=== PATIENT | female | born 1965 | race Two or more races ===

== ENCOUNTER 2019-04-07 11:15 | Emergency (ER) | payer BC, OTHER ==
[~2019-04-07] VITALS: Ht 165.1 cm; Wt 106.1 kg
[2019-04-07] MEDS ORDERED: LIDOCAINE VISCOUS 2% 15ML UD PO ONE (14:45)
[2019-04-07] MEDS ORDERED: ALBUTEROL SULF 2.5 MG/0.5ML(0.5%) NEB SOLN NEB ONE (14:45)
[2019-04-07] MEDS ORDERED: IPRATROPIUM BROM 0.5 MG/2.5ML INH SOL NEB ONE (14:45)
[2019-04-07] MEDS ORDERED: methylPREDNISolone SOD SUCC 125 MG/2 ML VL IV ONE (15:15)
[2019-04-07 16:41] VITALS: BP 132/75
[2019-04-08] MEDS ORDERED: LISI10TA6 PO (18:13)
[2019-04-08] MEDS ORDERED: EZET10TA38 PO (18:13)
[2019-04-08] MEDS ORDERED: LEVO125T7 PO (18:13)
== END 2019-04-07 19:09 | disposition home or self-care (01) ==
LOC: ER 11:15
DX: R06.02 Shortness of breath (principal); J02.9 Acute pharyngitis, unspecified; H60.93 Unspecified otitis externa, bilateral; R91.8 Other nonspecific abnormal finding of lung field; E78.5 Hyperlipidemia, unspecified; I10 Essential (primary) hypertension; E07.9 Disorder of thyroid, unspecified
CPT/HCPCS: 71046; 71250; 94640; 96374; 99284; J2930; J7611; J7644

== ENCOUNTER 2019-04-08 09:49 | Inpatient (IN) | payer BC ==
[~2019-04-08] VITALS: Ht 167.6 cm; Wt 110.1 kg
[2019-04-08] MEDS ORDERED: SODIUM CHLORIDE 0.9% 2,000 ML IV ONE (10:29)
[2019-04-08 11:00] LABS: Basophils # (auto) 0 uL; Basophils % (auto) 0.3 % (0.0-2.0); Eosinophils # (auto) 0 uL; Eosinophils % (auto) 0.1 % (0.0-7.0); Hematocrit 48.9 % (36.0-46.0); Hemoglobin 16.6 g/dL (12.2-16.2); Lymphocytes # (auto) 1.2 uL; Lymphocytes % (auto) 10.1 % (10.0-50.0); Mean Corpuscular Hemoglobin 31.2 pg (28.0-32.0); Mean Corpuscular Hgb Conc. 33.9 g/dL (32.0-36.0); Monocytes # (auto) 0.6 uL; Monocytes % (auto) 5.2 % (0.0-12.0); Neutrophils % (auto) 84.3 % (37.0-80.0); Nucleated Red Blood Cells % 0.1 %; Platelet Count (auto) 274 10^3/uL (140-450); Red Blood Cells 5.31 10^6/uL (4.0-5.20); White Blood Cell 11.8 10^3/uL (4.4-10.8)
[2019-04-08] MEDS ORDERED: IODIXANOL 320MG/ML 100ML BTL IV ONE (11:03)
[2019-04-08 11:18] LABS: INR 1.04 (0.9-1.15); Partial Thromboplastin Time 26.5 sec (23.64-32.05)
[2019-04-08 11:20] LABS: Albumin 3.9 g/dL (3.4-5.0); Calcium 9.5 mg/dL (8.5-10.1); Potassium 4.1 mmol/L (3.5-5.1)
[2019-04-08 11:23] LABS: BUN/Creatinine Ratio 14.3; Bilirubin, Total 0.7 mg/dL (0.2-1.0); Total Protein 8.2 g/dL (6.4-8.2)
[2019-04-08] MEDS ORDERED: SODIUM CHLORIDE 0.9% 1,000 ML IV ONE (13:15)
[2019-04-08] MEDS ORDERED: cefTRIAXone 1GM/50ML D5W 50 ML IV ONE ×2 (13:15→13:19)
[2019-04-08] MEDS ORDERED: HYDROcodone-ACET 5/325MG TAB PO PRN (14:30)
[2019-04-08] MEDS ORDERED: MORPHINE SULF INJ 2 MG/ML SYRINGE 1ML IV PRN ×2 (14:30)
[2019-04-08] MEDS ORDERED: NITROGLYCERIN 0.4 MG SL TAB SL PRN (14:30)
[2019-04-08] MEDS ORDERED: ONDANSETRON HCL 4 MG/2 ML VIAL IV PRN (14:30)
[2019-04-08] MEDS: AZITHROMYCIN 500MG/ 250ML 250 ML IV SCH (16:22)
--- NOTE | 2019-04-08 16:38 | NUR ---
Telemetry admit from ER ZORANEDELMIRA admitted to Telemetry unit after SBAR received from GYMNASTIC COACH Kourtney. Patient oriented to Amanda Salcedo RN primary RN, unit, room, bed, and unit policies regarding patient care and visiting hours. Patient now on continuous telemetry monitoring, tele box #[id number] and telemetry reading on arrival to unit is Sinus Rhythm 74 bpm. Patient placed on bedside oxygen, weighed by bedscale and encouraged to call if they need something. All questions and concerns addressed, patient verbalized understanding.
[2019-04-08 17:00] VITALS: BP 111/48
--- NOTE | 2019-04-08 17:22 | NUR ---
SPOKE WITH ROSANNE STEINBERG AND INFORMED HIM OF PATIENT'S VTE SCORE OF 2. STRAW HAT PRESSER IS AWARE AND ORDERED SCDS.
[2019-04-08] MEDS ORDERED: EZET10TA38 PO (18:13)
[2019-04-08] MEDS ORDERED: LEVO125T7 PO (18:13)
[2019-04-08] MEDS ORDERED: LISI10TA6 PO (18:13)
[2019-04-08] MEDS ORDERED: LABETALOL HCL 5 MG/ML ML 20ML VIAL IV PRN (18:15)
--- NOTE | 2019-04-08 18:15 | NUR ---
INFORMED INFORMATION AND DATA ARCHITECT ANALYST IDRIS OF PATIENT'S BLOOD PRESSURE OF 158/92 AND HR OF 76. INFORMATION AND DATA ARCHITECT ANALYST IS AWARE AND WANTS HOME BLOOD PRESSURE MEDICATIONS TO BE CONTINUED AND LABETALOL TO BE ORDERED PRN. WILL FOLLOW THROUGH WITH ORDERS
--- NOTE | 2019-04-08 18:25 | NUR ---
REASSESSED PATIENT'S BLOOD PRESSURE. BP IS 117/76 mmHg AND HR IS 76. WILL HOLD LABETALOL
--- NOTE | 2019-04-08 19:21 | NUR ---
CLOSING SHIFT NOTE ENDORSED CARE TO PLANISHING PRESS OPERATOR LAURA GENAO. PATIENT HAS NO S/S OF DISTRESS/SOB OR PAIN AT THIS TIME.
--- NOTE | 2019-04-08 19:30 | NUR ---
Opening Shift Note Assumed care of patient, awake and alert, ambulatory. No S/S of distress/SOB. On O2 at 2 Lpm/NC. Updated on POC and to call for assist PRN, patient verbalized understanding, call light within reach, will continue to monitor for changes Q1hr and PRN.
[2019-04-08 20:00] VITALS: BP 115/75
[2019-04-08] MEDS: ALBUTEROL SULF 2.5 MG/0.5ML(0.5%) NEB SOLN NEB SCH (20:49)
[2019-04-08] MEDS: IPRATROPIUM BROM 0.5 MG/2.5ML INH SOL NEB SCH (20:49)
[2019-04-08] MEDS: BUDESONIDE (INHALATION) 0.5 MG/2 ML NEB NEB SCH (20:50)
[2019-04-08 23:37] VITALS: BP 115/75
[2019-04-09] VITALS (7 sets, daily range): BP systolic 101–131; BP diastolic 52–78
[2019-04-09] MEDS: LEVOTHYROXINE SODIUM 50 MCG TAB PO SCH (06:03)
[2019-04-09] MEDS: BUDESONIDE (INHALATION) 0.5 MG/2 ML NEB NEB SCH ×2 (06:43→18:09)
[2019-04-09] MEDS: IPRATROPIUM BROM 0.5 MG/2.5ML INH SOL NEB SCH ×3 (06:49→18:09)
[2019-04-09] MEDS: ALBUTEROL SULF 2.5 MG/0.5ML(0.5%) NEB SOLN NEB SCH ×3 (06:49→18:09)
[2019-04-09 06:50] LABS: Basophils # (auto) 0 uL; Basophils % (auto) 0.2 % (0.0-2.0); Eosinophils # (auto) 0.1 uL; Eosinophils % (auto) 0.6 % (0.0-7.0); Hematocrit 42.6 % (36.0-46.0); Hemoglobin 14.4 g/dL (12.2-16.2); Lymphocytes # (auto) 2.9 uL; Lymphocytes % (auto) 29.9 % (10.0-50.0); Mean Corpuscular Hemoglobin 31.4 pg (28.0-32.0); Mean Corpuscular Hgb Conc. 33.9 g/dL (32.0-36.0); Mean Corpuscular Volume 92.7 fL (80.0-100.0); Monocytes # (auto) 0.6 uL; Monocytes % (auto) 6.3 % (0.0-12.0); Neutrophils # (auto) 6.1 uL; Nucleated Red Blood Cells % 0.1 %; Platelet Count (auto) 222 10^3/uL (140-450); Potassium 4.2 mmol/L (3.5-5.1); Red Cell Distribution Width 13.9 % (11.8-14.3); White Blood Cell 9.6 10^3/uL (4.4-10.8)
[2019-04-09 06:58] LABS: BUN/Creatinine Ratio 20.3; Calcium 8.1 mg/dL (8.5-10.1)
[2019-04-09 06:59] LABS: Cholesterol 126 mg/dL (< 200); HDL Cholesterol 45 mg/dL (40-59); LDL Cholesterol 72 mg/dL (< 100); Triglycerides 125 mg/dL (< 150)
--- NOTE | 2019-04-09 07:15 | NUR ---
OPENING SHIFT NOTE ASSUMED CARE OF PATIENT FROM INSURANCE SPECIALIST RN AGATA. PATIENT IS AWAKE AND ALERT X4. PATIENT HAS NO S/S OF DISTRESS/SOB OR PAIN. INSTRUCTED PATIENT ON POC, PATIENT VERBALIZED UNDERSTANDING. BED IS IN LOWEST POSITION WITH SIDE RAILS RAISED X2, BED WHEELS LOCKED, AND CALL LIGHT IS WITHIN REACH. WILL CONTINUE TO MONITOR.
[2019-04-09] MEDS: cefTRIAXone 1GM/50ML D5W 50 ML IV SCH (09:14)
[2019-04-09] MEDS: AZITHROMYCIN 500MG/ 250ML 250 ML IV SCH (10:10)
[2019-04-09] MEDS: LISINOPRIL 10 MG TAB PO SCH (10:10)
--- NOTE | 2019-04-09 11:06 | NUR ---
SPOKE WITH MD CARDOSO TO CONTINUE POM VYTORIN. ORDERED FOR MEDICATION TO BE CONTINUED. WILL TAKE MEDICATION TO PHARMACY
--- NOTE | 2019-04-09 18:05 | NUR ---
MD REYNOSO AT BEDSIDE. UPDATED MD ON PATIENT'S STATUS. PER MD HE WANTS DR. WALLACE INFORMED PATIENT IS HERE. MD WALLACE IS HER PCP. LEFT MESSAGE WITH DR. WALLACE TRANSFER SERVICES. AWAITING CALL BACK. INFORMED MD REYNOSO THAT HE IS STILL CONSULTED FOR PULMONARY FOR THE PATIENT.
--- NOTE | 2019-04-09 19:22 | NUR ---
CLOSING SHIFT NOTE ENDORSED CARE TO CHECKER AND PACKER RN CHRISSY. INFORMED RN OF MEDICAL RECORD REQUEST FROM [facility], ENDORSED FAX SHEETS TO CHECKER AND PACKER RN. PATIENT HAS NO S/S OF DISTRESS/SOB OR PAIN AT THIS TIME.
--- NOTE | 2019-04-09 19:30 | NUR ---
Opening Shift Note Assumed care of patient, awake and alert X4. No S/S of distress or pain. Complains of SOB on exertion or after ambulating to the bathroom. IV patent and saline locked. UA has not been collected. Instructed patient on obtaining a clean catch sample and specimen cup given. Ambulates to bathroom on own. Observed steady gait. Instructed on POC and to call for assist PRN, will continue to monitor for changes Q1hr and PRN.
--- NOTE | 2019-04-09 22:30 | NUR ---
Complaining of headache 06/07. [place] given. Offered ice pack or cold washcloth as well. Will follow up. Bed low and call light within reach
[2019-04-09 22:42] LABS: Urine Bacteria NONE SEEN /hpf (None Seen); Urine Blood Negative /uL (Negative); Urine Specific Gravity 1.008 (1.001-1.035); Urine WBC 1 /hpf (0 - 5)
--- NOTE | 2019-04-09 23:00 | NUR ---
Patient signed authorization for medical records from [place] per MD request. Papers given to [place]. [place] to [place] and placed in chart
--- NOTE | 2019-04-10 00:56 | NUR ---
Opening Note Assumed pt care from Kourtney BRITO RN. Pt is laying quietly in bed with no s/s of distress or SOB. A/Ox4. Safety measures maintained with side rails up, bed in lowest position and call light within reach. Will continue to monitor for changes q1hr and prn.
[2019-04-10 05:26] VITALS: BP 128/81
[2019-04-10] MEDS: IPRATROPIUM BROM 0.5 MG/2.5ML INH SOL NEB SCH ×3 (06:05→18:30)
[2019-04-10] MEDS: ALBUTEROL SULF 2.5 MG/0.5ML(0.5%) NEB SOLN NEB SCH ×3 (06:05→18:30)
[2019-04-10] MEDS: LEVOTHYROXINE SODIUM 50 MCG TAB PO SCH (06:22)
--- NOTE | 2019-04-10 07:04 | NUR ---
Closing Note Care endorsed to day shift nurse Ann SANCHEZ.
[2019-04-10 08:00] VITALS: BP 110/72
[2019-04-10] MEDS: cefTRIAXone 1GM/50ML D5W 50 ML IV SCH (09:55)
[2019-04-10] MEDS: EZETIMIBE SIMVASTATIN PO SCH (09:55)
[2019-04-10] MEDS: AZITHROMYCIN 500MG/ 250ML 250 ML IV SCH (09:55)
[2019-04-10] MEDS: LISINOPRIL 10 MG TAB PO SCH (09:57)
[2019-04-10] MEDS: BUDESONIDE (INHALATION) 0.5 MG/2 ML NEB NEB SCH ×2 (11:32→18:30)
[2019-04-10 12:00] VITALS: BP 123/76
[2019-04-10 17:00] VITALS: BP 146/80
--- NOTE | 2019-04-10 18:40 | NUR ---
Respiratory note: SCHEDULED MED NEB TX GIVEN VIA MASK, PT TOLERATED WELL. NO ADVERSE REACTIONS NOTED. WILL CONTINUE TO MONITOR.
--- NOTE | 2019-04-10 19:30 | NUR ---
Opening Shift Note Received report from Ann SANCHEZ. Assumed care of patient, awake and alert. No S/S of distress/SOB. Complains of headache at 8/10, will give medication. Instructed on POC and to call for assist PRN, will continue to monitor for changes Q1hr and PRN.
[2019-04-10] MEDS: ACETAMINOPHEN 500 MG TAB PO PRN (20:24)
[2019-04-10 22:00] VITALS: BP 121/73
[2019-04-11 05:37] VITALS: BP 126/73
[2019-04-11] MEDS: ALBUTEROL SULF 2.5 MG/0.5ML(0.5%) NEB SOLN NEB SCH ×4 (06:21→22:19)
[2019-04-11] MEDS: IPRATROPIUM BROM 0.5 MG/2.5ML INH SOL NEB SCH ×4 (06:21→22:19)
[2019-04-11] MEDS: BUDESONIDE (INHALATION) 0.5 MG/2 ML NEB NEB SCH ×2 (06:21→18:21)
[2019-04-11] MEDS: LEVOTHYROXINE SODIUM 50 MCG TAB PO SCH (06:43)
--- NOTE | 2019-04-11 06:44 | NUR ---
Patient awake, states slept well, headache resolved but still complaining about her coughing. Otherwise, patient is stable, will continue carre.
--- NOTE | 2019-04-11 07:04 | NUR ---
Care endorsed to Ann SANCHEZ.
[2019-04-11 08:31] VITALS: BP 127/81
[2019-04-11] MEDS: cefTRIAXone 1GM/50ML D5W 50 ML IV SCH (09:56)
[2019-04-11] MEDS: AZITHROMYCIN 500MG/ 250ML 250 ML IV SCH (09:57)
[2019-04-11] MEDS: EZETIMIBE SIMVASTATIN PO SCH (09:57)
[2019-04-11] MEDS: LISINOPRIL 10 MG TAB PO SCH (09:58)
[2019-04-11 17:14] VITALS: BP 100/82
[2019-04-11] MEDS: methylPREDNISolone SOD SUCC 125 MG/2 ML VL IV SCH (18:05)
--- NOTE | 2019-04-11 19:05 | NUR ---
Opening Shift Note Received report from Ann SANCHEZ. Assumed care of patient, awake and alert. No S/S of distress/SOB or pain. Instructed on POC and to call for assist PRN, will continue to monitor for changes Q1hr and PRN.
[2019-04-11 19:19] VITALS: BP 100/82
[2019-04-11 21:30] VITALS: BP 137/84
[2019-04-12] MEDS: methylPREDNISolone SOD SUCC 125 MG/2 ML VL IV SCH ×4 (00:08→21:52)
[2019-04-12 04:30] VITALS: BP 121/70
[2019-04-12] MEDS: LEVOTHYROXINE SODIUM 50 MCG TAB PO SCH (06:27)
[2019-04-12] MEDS: ALBUTEROL SULF 2.5 MG/0.5ML(0.5%) NEB SOLN NEB SCH ×5 (06:40→21:19)
[2019-04-12] MEDS: IPRATROPIUM BROM 0.5 MG/2.5ML INH SOL NEB SCH ×5 (06:40→21:19)
[2019-04-12 09:00] VITALS: BP 136/93
[2019-04-12] MEDS: BUDESONIDE (INHALATION) 0.5 MG/2 ML NEB NEB SCH ×2 (10:01→17:56)
[2019-04-12] MEDS: EZETIMIBE SIMVASTATIN PO SCH (10:25)
[2019-04-12] MEDS: LEVOFLOXACIN 500 MG TAB PO SCH (10:26)
[2019-04-12] MEDS: LISINOPRIL 10 MG TAB PO SCH (10:28)
--- NOTE | 2019-04-12 11:56 | NUR ---
Nutrition Assessment Notes please see attached link for complete assessment Est. Needs BW [id number] kcal (23-25 kcal/kgBW), 78-85 gms pro (1.0-1.1 gms/kgBW). Will continue to monitor pertinent labs and reassess nutrient need prn Addendum: 04/12/19 at [address] Amended: Links added.
[2019-04-12 13:00] VITALS: BP 108/82
[2019-04-12] MEDS ORDERED: AMMONIA 0.33 ML INHALANT IN ONE (16:31)
[2019-04-12 17:00] VITALS: BP 102/71
[2019-04-12] MEDS: ACETAMINOPHEN 500 MG TAB PO PRN (20:07)
[2019-04-12 22:00] VITALS: BP 125/78
[2019-04-13] MEDS ORDERED: TEMAZEPAM 15 MG CAP PO ONE (00:45)
[2019-04-13 04:30] VITALS: BP 102/65
[2019-04-13] MEDS: ALBUTEROL SULF 2.5 MG/0.5ML(0.5%) NEB SOLN NEB SCH ×5 (05:51→22:11)
[2019-04-13] MEDS: BUDESONIDE (INHALATION) 0.5 MG/2 ML NEB NEB SCH ×2 (05:51→18:37)
[2019-04-13] MEDS: IPRATROPIUM BROM 0.5 MG/2.5ML INH SOL NEB SCH ×5 (05:51→22:11)
[2019-04-13] MEDS: methylPREDNISolone SOD SUCC 125 MG/2 ML VL IV SCH ×3 (06:45→21:18)
[2019-04-13] MEDS: LEVOTHYROXINE SODIUM 50 MCG TAB PO SCH (06:46)
--- NOTE | 2019-04-13 07:12 | NUR ---
Patient stable, no sob or pain. Endorsed care to Mony SANCHEZ.
--- NOTE | 2019-04-13 07:27 | NUR ---
Care endorsed to Ángela SANCHEZ.
--- NOTE | 2019-04-13 07:50 | NUR ---
Opening Shift Note Assumed care of patient, awake, alert, and oriented x4. Patient has no complaints of pain at this time. Patient had dry nonproductive cough. Patient has IV in right hand 20g saline locked and flushing well, patient tolerating well. Patient is on room air with no S/S of distress/SOB. Patient's skin is intact. Instructed on POC and to call for assist PRN, will continue to monitor for changes Q1hr and PRN. Bed in lowest locked position, call light within reach.
[2019-04-13 08:00] VITALS: BP 102/69
[2019-04-13 09:00] VITALS: BP 102/69
[2019-04-13] MEDS: LISINOPRIL 10 MG TAB PO SCH (09:36)
[2019-04-13] MEDS: EZETIMIBE SIMVASTATIN PO SCH (09:36)
[2019-04-13] MEDS: LEVOFLOXACIN 500 MG TAB PO SCH (09:36)
[2019-04-13 13:00] VITALS: BP 115/71
[2019-04-13] MEDS: ACETAMINOPHEN 500 MG TAB PO PRN (13:42)
[2019-04-13 17:00] VITALS: BP 115/66
--- NOTE | 2019-04-13 18:46 | NUR ---
END OF SHIFT PATIENT RESTING IN BED. NO S/S OF DISTRESS. INSTRUCTED PATIENT TO CALL PRN. BED IN LOWEST LOCKED POSITION, CALL LIGHT WITHIN REACH. ENDORSED CARE TO LAURA BRITO.
--- NOTE | 2019-04-13 19:55 | NUR ---
ASSUMED CARE, PT. AWAKE, SITTING ON BED, NO C/O PAIN, NO SOB.
[2019-04-13 22:00] VITALS: BP 132/71
--- NOTE | 2019-04-13 22:54 | NUR ---
REPORT GIVEN TO LAURA JOHNSL.
[2019-04-14] MEDS: ACETAMINOPHEN 500 MG TAB PO PRN (03:36)
[2019-04-14 05:00] VITALS: BP 116/69
[2019-04-14] MEDS: LEVOTHYROXINE SODIUM 50 MCG TAB PO SCH (05:29)
[2019-04-14] MEDS: methylPREDNISolone SOD SUCC 125 MG/2 ML VL IV SCH (05:29)
[2019-04-14] MEDS: ALBUTEROL SULF 2.5 MG/0.5ML(0.5%) NEB SOLN NEB SCH ×2 (05:51→09:56)
[2019-04-14] MEDS: IPRATROPIUM BROM 0.5 MG/2.5ML INH SOL NEB SCH ×2 (05:51→09:56)
[2019-04-14 08:00] VITALS: BP 116/71
[2019-04-14] MEDS: BUDESONIDE (INHALATION) 0.5 MG/2 ML NEB NEB SCH (09:55)
[2019-04-14] MEDS: LISINOPRIL 10 MG TAB PO SCH (10:09)
[2019-04-14] MEDS: EZETIMIBE SIMVASTATIN PO SCH (10:09)
[2019-04-14] MEDS: LEVOFLOXACIN 500 MG TAB PO SCH (10:09)
[2019-04-14 12:00] VITALS: BP 143/71
== END 2019-04-14 13:40 | disposition home or self-care (01) | DRG 193 ==
LOC: ER 09:52 → TELE 14:35 → TELE-CENTR 16:29 → CENTRAL 04-12 22:25
PROVIDERS: ADMIT Nurse Practitioner Acute Care; ATTEND Internal Medicine
DX: J18.9 Pneumonia, unspecified organism (principal); J96.91 Respiratory failure, unspecified with hypoxia; N17.0 Acute kidney failure with tubular necrosis; Q25.72 Congenital pulmonary arteriovenous malformation; J44.0 Chronic obstructive pulmonary disease with (acute) lower respiratory infection; J44.1 Chronic obstructive pulmonary disease with (acute) exacerbation; J45.901 Unspecified asthma with (acute) exacerbation; E03.9 Hypothyroidism, unspecified; E66.9 Obesity, unspecified; E78.00 Pure hypercholesterolemia, unspecified; E78.5 Hyperlipidemia, unspecified; I12.9 Hypertensive chronic kidney disease with stage 1 through stage 4 chronic kidney disease, or unspecified chronic kidney disease; N18.3 Chronic kidney disease, stage 3 (moderate); Z79.899 Other long term (current) drug therapy; Z68.39 Body mass index [BMI] 39.0-39.9, adult
CPT/HCPCS: 36415; 36600; 71045; 71046; 71275; 80048; 80053; 80061; 81001; 82805; 83036; 84443; 85025; 85610; 85730; 93005; 93306; 94640; 96361; 96365; 96366; G0378; J0696; Q9967

== ENCOUNTER 2019-04-15 19:33 | Emergency (ER) | payer BC ==
[~2019-04-15] VITALS: Ht 167.6 cm; Wt 108.9 kg
[~2019-04-15 19:33] MED LIST: EZET10TA38 PO; LEVO125T7 PO; LISI10TA6 PO
[2019-04-15 19:49] VITALS: BP 123/78
== END 2019-04-16 00:55 | disposition left against medical advice (07) ==
LOC: ER 19:34
DX: M25.561 Pain in right knee (principal); Z53.21 Procedure and treatment not carried out due to patient leaving prior to being seen by health care provider
CPT/HCPCS: 93971